=== PATIENT | female | born 1970 | race Caucasian/White ===

== ENCOUNTER 2022-01-10 08:08 | Day surgery (SDC) | payer BC ==
[~2022-01-10 08:08] MED LIST: Albuterol 0.083% 2.5 MG/3 ML Neb Soln NEB PRN; Bupivacaine 0.5% 30 ML SDV ONE; HYDROmorphone 1 MG/ML Syringe IVPUSH PRN; Lidocaine 1% 20 ML MDV ONE; Metoclopramide 10 MG/2 ML SDV IVPUSH PRN; Morphine 4 MG/ML VIAL IVPUSH PRN; Naloxone 0.4 MG/ML SDV IVPUSH PRN; Ondansetron 4 MG/2 ML SDV IVPUSH PRN; ceFAZolin 1 GM Vial ONE; fentaNYL 50 MCG/ML SDV IVPUSH PRN
[2022-01-10] MEDS ORDERED: Scopolamine 1.5 MG Transdermal Patch ONE (08:30)
[2022-01-10] MEDS ORDERED: Dexamethasone 4 MG/ML 5 ML MDV ONE (08:35)
[2022-01-10] MEDS ORDERED: Lidocaine 2% 5 ML SDV ONE (08:35)
[2022-01-10] MEDS ORDERED: Sugammadex Sodium 200 MG/2 ML VIAL ONE (08:35)
[2022-01-10] MEDS ORDERED: Ondansetron 4 MG/2 ML SDV ONE (08:35)
[2022-01-10] MEDS ORDERED: Rocuronium Bromide 50 MG/5 ML Syringe ONE (08:35)
[2022-01-10] MEDS ORDERED: Propofol 200 MG/20 ML SDV ONE (08:35)
[2022-01-10] MEDS ORDERED: fentaNYL 250 MCG/5 ML SDV ONE (08:35)
[2022-01-10] MEDS ORDERED: Midazolam 1 MG/ML 2 ML SDV ONE (08:35)
[2022-01-10] MEDS ORDERED: ceFAZolin 2 GM in Premix Bag 1 BAG IV ONE (09:45)
[2022-01-10] MEDS ORDERED: Lactated Ringers 1,000 ML IV SCH (09:45)
[2022-01-10] MEDS ORDERED: HYDROmorphone 2 MG/ML Syringe ONE (11:25)
== END 2022-01-10 16:00 | disposition home or self-care (01) ==
LOC: MW.SDS 08:08
PROVIDERS: ATTEND Podiatrist Foot & Ankle Surgery
DX: M76.62 Achilles tendinitis, left leg (principal); M89.8X7 Other specified disorders of bone, ankle and foot; F17.210 Nicotine dependence, cigarettes, uncomplicated; G47.33 Obstructive sleep apnea (adult) (pediatric); E16.2 Hypoglycemia, unspecified; E66.9 Obesity, unspecified; Z98.890 Other specified postprocedural states; Z79.899 Other long term (current) drug therapy
CPT/HCPCS: 27654; 28118; 81025; A9270; J0131; J0690; J1100; J1170; J2250; J2405; J2704; J3010; J3490; J7120